=== PATIENT | female | born 1950 | race Caucasian/White ===

== ENCOUNTER 2021-06-26 09:22 | Outpatient (CLI) | payer MEDICARE, BC ==
[2021-06-26 17:30] LABS: SARS-CoV-2 PCR by NAA Not Detected (NotDetected)
== END 2021-06-26 09:23 | disposition home or self-care (01) ==
LOC: CSHLAB 09:22
PROVIDERS: ATTEND Internal Medicine Gastroenterology
DX: Z20.822 Contact with and (suspected) exposure to COVID-19 (principal); K63.5 Polyp of colon
CPT/HCPCS: U0003; U0005

== ENCOUNTER 2021-06-29 08:21 | Day surgery (SDC) | payer MEDICARE, BC ==
[2021-06-23 13:11] VITALS: BMI 21.4
[2021-06-29] MEDS ORDERED: Lidocaine 1% MPF 2 ML VIAL ONE (09:04)
[2021-06-29] MEDS ORDERED: Lidocaine 1% PF 5 ML VIAL ONE (09:16)
== END 2021-06-29 11:06 | disposition home or self-care (01) ==
LOC: CSHSDC 08:21
PROVIDERS: ATTEND Internal Medicine Gastroenterology
PROC: 0DJD8ZZ Inspection of Lower Intestinal Tract, Via Natural or Artificial Opening Endoscopic (ICD-10-PCS; principal; 2021-06-29)
DX: Z12.11 Encounter for screening for malignant neoplasm of colon (principal); Z86.010 Personal history of colon polyps; K57.30 Diverticulosis of large intestine without perforation or abscess without bleeding; K64.9 Unspecified hemorrhoids; E03.9 Hypothyroidism, unspecified; Z79.899 Other long term (current) drug therapy